=== PATIENT | female | born 2000 | race Caucasian/White ===

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

== ENCOUNTER 2024-03-07 18:55 | Inpatient (IN) | payer BC, SELFPAY ==
[2024-03-07 19:30] VITALS: BP 132/88; PULSE 104; O2SAT 98
[2024-03-07 19:31] VITALS: RESP 16; TEMP 36.7
[2024-03-07] MEDS: Lactated Ringers 1,000 ML 50 ML IV (19:45)
[2024-03-07 19:56] LABS: Absolute Lymphocyte Count 1.72 X10^3/uL (0.83-4.51); Absolute Neutrophil Count 8.3 X10^3/uL (2.0-7.7); Basophil# 0.03 X10^3/uL; Basophil% 0.3 % (0-1); Eosinophil# 0.11 X10^3/uL; Hematocrit 36.9 % (37-47); Hemoglobin 12.5 g/dL (12.0-15.0); Lymphocyte # 1.72 X10^3/ul (0.83-4.51); Lymphocyte % 15.7 % (19-41); Mean Corp Hgb Conc 33.9 g/dL (32-36); Mean Corpuscular Hgb 28.5 pg (27.0-32.0); Mean Corpuscular Volume 84.2 fL (81-99); Mean Platelet Vol. 10.5 fl (6.2-12.0); Monocyte# 0.72 X10^3/uL; Monocyte% 6.6 % (0-10); NRBC Flagged by Analyzer 0 % (0-5); Neutrophil # 8.33 X10^3/uL (2.7-7.7); Neutrophil % 75.9 % (47-70); Platelet Count 245 K/mm3 (150-450); RBC Distribution Width CV 13.1 % (11.6-14.6); RBC Distribution Width SD 40.3 fl (35.1-43.9); Red Blood Count 4.38 M/mm3 (4.2-5.4)
[2024-03-07] MEDS: miSOPROStol 25 MCG TABLET VAGINAL (20:00)
[2024-03-07] MEDS: 0.9% Normal Saline Single 100 ML IV.SOLN. INTRA-UTER (20:00)
--- NOTE | 2024-03-07 20:13 | PCM.HP.OB ---
HPI - General General Date of Admission: 03/07/24 HPI Narrative NING THORNTON, is a 23 F who presents @ 39 weeks who presents for IOL for Gest HTN PFSH [facility] Medical History (Updated 03/07/24 @ 20:[address] Xochitl Leal MD) Anxiety Gestational HTN Home Medications naproxen 500 mg tablet 500 mg PO BID PRN pain #20 tabs 11/12/18 [Rx Last Taken Unknown] omeprazole 20 mg tablet,delayed release 20 mg PO DAILY 03/07/24 [History Last Taken 03/06/24 21:00 20 mg] vit no.95-ferrous fumarate 28 mg-folic acid 800 mcg tablet () 1 tab PO DAILY 03/07/24 [History Last Taken 03/06/24 21:00 1 TAB] Allergy/AdvReac Type Severity Reaction Status Date / Time No Known Allergies Allergy Verified 03/07/24 20:10 Surgical History (Updated 03/07/24 @ 20:17 by Tayler Hicks) History of surgery Social History Smoking Status: Never smoker NST FHR Rate Baby A Baseline: 150 Variability:: Moderate Accelerations:: 15 x 15 Decelerations:: None NST Reactive:: Yes FHR Category:: Category I Uterine Activity:: occasional Vital Signs Vital Signs Vital Signs: 03/07/24 19:30 03/07/24 19:30 03/07/24 19:30 Temperature Temperature Source Pulse Rate 104 H Respiratory Rate Blood Pressure 132/88 H BP Systolic 132 BP Diastolic 88 Pulse Ox 98 03/07/24 19:31 03/07/24 19:31 03/07/24 19:31 Temperature 98.1 F Temperature Source Tympanic Pulse Rate Respiratory Rate 16 Blood Pressure BP Systolic BP Diastolic Pulse Ox Physical Exam Narrative VE: 160/-3, posterior cervix. Intracervical bazan placed. Const alert and oriented x3 General Appearance: cooperative HEENT normocephalic GI GI Narrative: Gravid, non tender to palpation. OB / External & Speculum: external exam normal Extremity normal to inspection Skin no rashes or lesions noted Neuro oriented x3 and CN's II-XII intact bilaterally Psych Appearance: grossly normal Labs Labs Labs: Blood Type Pending Antibody Screen Pending Hct 36.9 % (37-47) L Hgb 12.5 g/dL (12.0-15.0) Syphilis Total Ab Pending Assessment & Plan (1) 39 weeks gestation of : (2) Gestational HTN: (3) Anxiety: PLAN: Plan Admit to L&D Mont[place] FHR/TOCO Epidural if requested for pain Monitor VS Anticipate bazan/cytotec then will start pitocin
[2024-03-07 20:24] VITALS: BMI 29.3
[2024-03-07 20:43] LABS: Syphilis Antibodies Non-reactive
[2024-03-07] MEDS: LACTATED RINGERS 500 ML 999 ML IV (22:42)
[2024-03-08] VITALS (57 sets, daily range): BP systolic 106–145; BP diastolic 53–92; PULSE 66–144; RESP 15–18; TEMP 36.2–37.2; O2SAT 80–100
[2024-03-08] MEDS: miSOPROStol 25 MCG TABLET VAGINAL (00:05)
[2024-03-08] MEDS: LACTATED RINGERS 500 ML 999 ML IV ×3 (03:43→08:29)
[2024-03-08] MEDS: fentaNYL-bupivacaine (epidural) 100 ML BAG EPIDURAL ×2 (04:34→10:09)
[2024-03-08] MEDS: Lactated Ringers 1,000 ML 200 ML IV ×2 (06:07→12:05)
[2024-03-08] MEDS: Oxytocin 15 Units/NS 250ml 15 UNITS/250 ML IV.SOLN 2 UNITS IV (06:08)
--- NOTE | 2024-03-08 08:16 | PCM.PN.CNM ---
Subjective Subjective Patient seen at bedside. Comfortable with epidural. Objective Data Objective Data Vital Signs: Vital Signs Temp Pulse Resp BP Pulse Ox 97.8 F 80 15 116/67 97 03/08/24 07:41 03/08/24 07:40 03/08/24 07:41 03/08/24 07:40 03/08/24 07:41 Weight: 176 lb 9.444 oz Body Mass Index (BMI) 29.3 Intake & Output: Intake and Output for Last 24 Hours 03/06/24 03/07/24 03/08/24 23:59 23:59 23:59 Intake Total 537.5 / 537.5 1264.17 / 1264.17 Output Total 100 / 100 Balance 537.5 / 537.5 1164.17 / 1164.17 Lab / Micro Data 03/07/24 19:45 Labs: Laboratory Results - last 24 hr 03/07/24 19:45: WBC 11.0, RBC 4.38, Hgb 12.5, Hct 36.9 L, MCV 84.2, MCH 28.5, MCHC 33.9, RDW Std Deviation 40.3, RDW Coeff of Jessica 13.1, Plt Count 245, MPV 10.5, Immature Gran % (Auto) 0.500, Neut % (Auto) 75.9 H, Lymph % (Auto) 15.7 L, Ballard % (Auto) 6.6, Eos % (Auto) 1.0, Baso % (Auto) 0.3, Absolute Neuts (auto) 8.3 H, Absolute Lymphs (auto) 1.72, Nucleated RBC % 0, Syphilis Total Ab Non-reactive, Antibody Screen NEGATIVE ROS Eyes Eyes: Denies blurry vision, change in vision or spots in vision ENT HEENT: Denies dizziness or headache(s) Cardiovascular Cardiovascular: Denies abdominal pain, chest pain or dyspnea Respiratory/Chest Respiratory/Chest: Denies cough, dyspnea, shortness of breath at rest or shortness of breath with exertion Gastrointestinal Gastrointestinal: Denies abdominal pain, diarrhea or vomiting Genitourinary Genitourinary: Denies change in urinary stream, difficulty urinating or dysuria Musculoskeletal Musculoskeletal: Reports none Integumentary Integumentary: Denies rash Neurologic Neurologic: Denies dizziness, headache(s), memory loss or weakness Psychiatric Psychiatric: Reports none Physical Exam Const alert and no apparent distress General Appearance: cooperative Orientation / Consciousness: awake Exam Limitations: no limitations HEENT normocephalic Eyes General Eye: normal appearance of both eyes Neck full ROM Chest inspection of chest normal Resp normal respiratory effort and normal air movement Effort and Inspection: symmetric chest movement Auscultation: clear to auscultation bilaterally Cardio regular rate GI soft to palpation, non-tender and non-distended Inspection: and other Back/Spine normal ROM Extremity full ROM, normal capillary refill and no calf tenderness Skin no rashes or lesions noted Neuro oriented x3 and CN's II-XII intact bilaterally Psych mental status grossly normal Assessment & Plan (1) 39 weeks gestation of : (2) Gestational HTN: (3) Anxiety: (4) Meconium in amniotic fluid: PLAN: Plan CE /-2 AROM for large amount of meconium fluid Pitocin currently off due to tachysystole IUPC and FSE placed without difficulty Anticipate
[2024-03-08] MEDS: Terbutaline 1 MG/ML Vial 0.25 MG SC (09:06)
--- NOTE | 2024-03-08 09:11 | PCM.PN.CNM ---
Subjective Subjective Cat. 2 tracing with tachysystole at times. Dr. Addison updated and order received for dose of Terbutaline to be given STAT. Patient repositioned to hands and knees. Good FHT acceleration with scalp stimulation. Objective Data Objective Data Vital Signs: Vital Signs Temp Pulse Resp BP Pulse Ox 97.5 F L 117 H 17 107/57 L 99 03/08/24 08:50 03/08/24 09:10 03/08/24 08:50 03/08/24 08:50 03/08/24 09:10 Weight: 176 lb 9.444 oz Body Mass Index (BMI) 29.3 Intake & Output: Intake and Output for Last 24 Hours 03/06/24 03/07/24 03/08/24 23:59 23:59 23:59 Intake Total 537.5 / 537.5 1268.37 / 1268.37 Output Total 100 / 100 Balance 537.5 / 537.5 1168.37 / 1168.37 Lab / Micro Data 03/07/24 19:45 Labs: Laboratory Results - last 24 hr 03/07/24 19:45: WBC 11.0, RBC 4.38, Hgb 12.5, Hct 36.9 L, MCV 84.2, MCH 28.5, MCHC 33.9, RDW Std Deviation 40.3, RDW Coeff of Jessica 13.1, Plt Count 245, MPV 10.5, Immature Gran % (Auto) 0.500, Neut % (Auto) 75.9 H, Lymph % (Auto) 15.7 L, White % (Auto) 6.6, Eos % (Auto) 1.0, Baso % (Auto) 0.3, Absolute Neuts (auto) 8.3 H, Absolute Lymphs (auto) 1.72, Nucleated RBC % 0, Syphilis Total Ab Non-reactive, Antibody Screen NEGATIVE Assessment & Plan (1) Category II heart rate tracing during labor and delivery: PLAN: Plan FHT's recovered with position change Pitocin off Currently category 1 tracing Will continue to monitor closely
[2024-03-08] MEDS: Oxytocin 15 Units/NS 250ml 15 UNITS/250 ML IV.SOLN 83 UNITS IV (15:05)
--- NOTE | 2024-03-08 15:05 | OP.PCM_ITS ---
Assessment & Plan (1) (spontaneous vaginal delivery): (2) Laceration, obstetrical, second degree: (3) Gestational HTN: (4) Anxiety: (5) Care and examination of lactating mother: Maternal Data Information ROMAIN Calculator Estimated Delivery Date Method Current WG Current Estimate 03/11/24 Manual 39w 4d Vaginal Delivery Maternal Presentation Maternal Presentation: Medically Indicated Induction Maternal Presentation: at 39.4 weeks gestation that presented for induction of labor for GHTN. Type of Induction: Pitocin, Anguiano Bulb, Amniotomy and Cytotec Medical Reason for Induction: Gestational Hypertension Operative Information Date of Procedure: 03/08/24 Pre-Operative Diagnosis: Term gestation, Induction of labor, GHTN Post-Operative Diagnosis: , live male infant Surgery / Procedure Performed: Spontaneous Vaginal Delivery Type of Anesthesia: Epidural Drain: Anguiano to straight drain Estimated Blood Loss: 250 Time of Delivery: 14:33 Findings Description of Procedure: Patient feeling pressure and urge to push. With good maternal effort, head delivered followed by posterior shoulder, anterior shoulder and remainder of infant body. mouth and nares suctioned. Loose nuchal cord around neck easily reduced. Vigorous male placed on maternal abdomen and attended to by nursery staff and maintenance and repair worker. Pitocin IV started for active management of the third stage of labor. 3 vessel cord clamped and cut by FOB after delay and placed immediately skin to skin with patient. Cord blood collected and sent. Placenta delivered spontaneously and intact. Second degree laceration repaired in usual fashion using Vicryl 3-0 Rapid. Hemostasis obtained. Vaginal sweep and rectal exam completed by me. Fundus firm 2 below U. EBL 250 cc. APGARS 8/9. and patient bonding well at this time. Dr. Addison notified of delivery. Presentation: Vertex Amniotic Membrane Rupture Type: Artificial Time of Membrane Rupture: 0807 Amniotic Fluid Description: Thick meconium Placental Delivery Description: Spontaneous Placenta Disposition: [facility] Cord Vessel Description: 3 Vessels Cord Entanglement: Around neck x 1, loose Nuchal Cord Compression: Without compression Infant A Gender: Male (1 minute): 8 (5 minute): 9 Delayed Cord Clamping: Yes Post Vaginal Delivery Medications Given After Delivery: IV Pitocin Episiotomy Description: None Laceration: 2nd degree Complication Complications: None
[2024-03-08] MEDS: Naproxen 500 MG Tablet PO (17:44)
[2024-03-09] MEDS: Acetaminophen 500 MG Tablet 1000 MG PO (00:15)
[2024-03-09 04:09] VITALS: BP 115/71; PULSE 74; RESP 16; TEMP 36.3; O2SAT 98
--- NOTE | 2024-03-09 06:38 | DS.PCM_ITS ---
Providers Date of Admission: 03/07/24 Primary Care Physician: Dr. Jonathan Schofield MD Reason For Visit: VAGINAL DELIVERY Diagnosis Discharge Diagnosis (1) (spontaneous vaginal delivery): Status: Acute Code(s): O80 - Encounter for full-term uncomplicated delivery (2) Laceration, obstetrical, second degree: Status: Acute Code(s): O70.1 - Second degree perineal laceration during delivery (3) Care and examination of lactating mother: Status: Acute Code(s): Z39.1 - Encounter for care and examination of lactating mother Medications at Discharge Home Medications naproxen 500 mg tablet 500 mg PO BID PRN pain #20 tabs 11/12/18 omeprazole 20 mg tablet,delayed release 20 mg PO DAILY 03/07/24 vit no.95-ferrous fumarate 28 mg-folic acid 800 mcg tablet () 1 tab PO DAILY 03/07/24 sennosides 8.6 mg-docusate sodium 50 mg tablet (Stool Softener-Stimulant Laxative) 1 - 2 tab PO DAILY PRN PRN Constipation #0 tabs 03/09/24 Hospital Course Operations None Procedures None Summary of Care Provided Minutes Spent on Discharge: 15 Hospital Course: Patient had . Hospital course was uneventful. Physical Exam Const alert and no apparent distress General Appearance: cooperative and comfortable Exam Limitations: no limitations HEENT normocephalic Eyes General Eye: normal appearance of both eyes Neck full ROM General: normal visual inspection Chest Chest: symmetrical chest wall rise Resp normal respiratory effort and normal air movement Effort and Inspection: symmetric chest movement Auscultation: clear to auscultation bilaterally Cardio regular rate and regular rhythm GI normal to inspection, nondistended, normoactive bowel sounds Back/Spine normal ROM Extremity full ROM and no calf tenderness General Extremity: normal exam except as noted Skin no rashes or lesions noted Neuro CN's II-XII intact bilaterally Psych mental status grossly normal Weight / BMI Weight Weight: 176 lb 9.444 oz Body Mass Index (BMI) 29.3 ABG / Lab / Microbiology Data 03/07/24 19:45 D/C Instructions Discharge Diet: No restrictions May resume sexual activity in: 6-8 weeks Weight Bearing Status: Weight bearing as tolerated Call your doctor if you observe: Fever of 101 or Higher, Inability to urinate, Using more than 1 pad per hour, Shortness of breath, Chest pain, Calf discomfort and Uncontrolled pain Please Follow Up With: Ermelinda Almonte CNM When: 2 weeks virtual visit/ 6 weeks in office Meaningful Use Info Meaningful Use Diagnoses (Choose all that apply): None applicable Discharge Plan Admission Admit Date/Time: 03/07/24 18:55 Primary Reason for Your Visit: Labor and Delivery Attending Provider: Ermelinda Almonte Primary Care Provider: Jonathan Schofield Discharge Orders/Prescriptions Prescriptions: New sennosides-docusate sodium [Stool Softener-Stimulant Laxat] 8.6-50 mg Tablet 1 - 2 tab PO DAILY PRN PRN (Reason: Constipation) Qty: 0 0RF Continued naproxen 500 MG tablet 500 mg PO BID PRN Qty: 20 0RF Hold Instructions: PNV cmb#95-ferrous fumarate-FA [] 28 mg iron- 800 mcg tablet 1 tab PO DAILY No Action omeprazole 20 mg tablet,delayed release (DR/EC) 20 mg PO DAILY Referrals / Follow Up: Ermelinda Almonte CNM [Med Staff - [facility]] - Jonathan Schofield MD [Primary Care Provider] - Disposition Disposition (needs filled in before D/C Order can be placed): Home, Self Care
[2024-03-09 08:52] VITALS: BP 124/82; PULSE 81; RESP 16; TEMP 36.2; O2SAT 97
[2024-03-09 12:16] VITALS: BP 127/76; PULSE 98; RESP 16; TEMP 36.3; O2SAT 98
[2024-03-09 16:08] VITALS: BP 117/75; PULSE 100; RESP 16; TEMP 36.3; O2SAT 99
--- NOTE | 2024-03-10 09:28 | CASEMGMT ---
Social Work Assessment Labor and Delivery Unit Patient Address: [address] [place] [id number] Phone number: [phone] Date of Referral: 03/09/24 Time of Referral:? 1434 Referred By: Xochitl Leal Date of Intervention: ??03/09/24 Time of Intervention:? 1210 Reason for Referral:?History of anxiety Sw completed chart review and acknowledges social work consult due to maternal mental health history positive for anxiety. Sw presented to bedside and introduced self to mother of baby (IJEOMA- Trisha) and father of baby (ELZBIETA- Willam). Sw notes that parents have visitor present, and asked if it was okay to continue with assessment, and parents stated yes. Sw explained sw role during hospitalization and completed psychosocial assessment. History obtained from: medical records, MOB and ELZBIETA Household composition: Currently residing in the family home is ELZBIETA RAPHAEL, their family cat and baby when ready for discharge. Parents deny any issues or concerns with their current housing. Patient's parent/guardian status:? ?IJEOMA states that she and ELZBIETA have been together for 4 years, they met at youth group at their [employer]. No concerns of domestic violence or intimate partner violence reported. Medical History: IJEOMA is 23 year old female who is 2, para 0- now 1 following labor and delivery of . IJEOMA received routine care during with [facility]. IJEOMA presented to hospital for induction of labor and delivered baby via vaginal delivery on 03/08/24 at 39 weeks gestation. Baby boy, named Lindsey, was born weighing 6lb 10oz with apgars of 8 and 9 at one and five minutes of life, respectfully. IJEOMA is breast feeding and states that it is going well. Baby will be followed by Dr. Damon for pediatrics. Educational Status:? MOB completed high school, ELZBIETA obtained an associates degree. No concerns reported regarding reading, learning or comprehension. Financial Status: ELZBIETA is gainfully employed outside of the home. He works in IT for his father in [employer] and is able to take some time off of work now that baby has been born. MOB states that she is a stay at home mom now that baby has been born. Infant Supplies:??Parents have obtained all necessary baby supplies, including: car seat, safe sleep space, clothes, diapers and wipes. MOB states that she also has a breast pump for home. Childcare/Caregiver(s):? MOB will be the primary caregiver to baby along with FOB when he is not at work. Transportation:?? Both parents have their drivers license and reliable means of transportation. Programs/Agencies Involved: ???Parents deny linkage to community resources that help them financially. Children Services/Legal Issues:??? No history of involvement, no issues or concerns warranting referral to be made at this time. Behavioral Health Issues: ??Mental Health History: FOB denies mental health diagnoses. MOB states that she has a history of anxiety, is not prescribed medications. MOB states that it is mostly situational anxiety. MOB reports that when she starts to feel anxious she utilizes healthy and appropriate coping skills. MOB denies feeling anxious throughout , and states that she has been feeling really good since delivery. ??? Substance Use History:??Parents deny substance use prior to and during . Family History:?Parents deny family history of addiction/ substance use and significant mental health diagnoses such as bipolar or schizophrenia. ? Drug Screens: No drug screens observed during chart review. ?? Family/Social Stressors:? Parents deny any issues, concerns or stressors at this time. They were observed to be in good spirits and are excited to take baby home. Support Systems: MOB states that both sets of grandparents are extremely supportive. Depression/Shaken Baby/Safe Sleeping:? Sw educated parents on signs and symptoms of baby blues and anxiety and depression to be on the lookout for. Sw provided parents with literature for their review, that provides information regarding what to be on the lookout for regarding mental health. Parents express understanding. Sw educated parents on shaken baby prevention and ABCs of safe sleep. ASSESSMENT:? MOB and baby admitted following labor and delivery of . FOB states that he would be able to recognize a change in MOB's mental health should she experience any depression/ anxiety, and he would know how to help and support her. Parents made and maintained eye contact throughout completion of psychosocial assessment. Parents observed to be in happy and upbeat moods. Parents were receptive to sw involvement and support, engaging in conversation throughout. Parents have obtained everything they need for baby and have natural supports in place. Parents also provided paperwork on Help Me Grow, list of psychiatric hospital resources, and shaken baby prevention and ABCs of safe sleep. PLAN:? MOB and baby to be discharged when medically ready. ?No other services requested or indicated. Apollo Stratton, HOSE BUILDER, TRANSITION NURSE
== END 2024-03-09 17:40 | disposition home or self-care (01) | DRG 807 ==
PROVIDERS: Admitting Provider Obstetrics & Gynecology; PCP Family Medicine; Referring Provider Obstetrics & Gynecology; Visit Provider Advanced Practice Midwife
DX: O13.4 Gestational [pregnancy-induced] hypertension without significant proteinuria, complicating childbirth (principal); Z37.0 Single live birth; O99.344 Other mental disorders complicating childbirth; F41.9 Anxiety disorder, unspecified; O70.1 Second degree perineal laceration during delivery; Z3A.39 39 weeks gestation of pregnancy; O77.0 Labor and delivery complicated by meconium in amniotic fluid; O69.81X0 Labor and delivery complicated by cord around neck, without compression, not applicable or unspecified; O76 Abnormality in fetal heart rate and rhythm complicating labor and delivery
CPT/HCPCS: 59050; 85025; 86780; 86850; 86900; 86901; 99221; J7120; G0378; J3490

== ENCOUNTER 2025-04-21 17:56 | Emergency (ER) | payer BC, OTHER, SELFPAY ==
[2025-04-21 17:57] VITALS: BP 133/88; PULSE 95; RESP 17; TEMP 36.6; O2SAT 100; BMI 28.4
--- NOTE | 2025-04-21 18:29 | EDS_ITS ---
HPI HPI - Female History of Present Illness Chief Complaint: Vag Bld, Preg Informant: patient Associated Symptoms P: 1 Ab: 1 Narrative Narrative: Patient is a 24-year-old female G3, P1 who is 12 weeks gestation by dates had ultrasound approximate 7 weeks that showed single intrauterine gestation. She follows with [facility]. She woke up today with vaginal spotting and as the days progressed she started have increased bleeding and cramping. She initially went to [facility] emergency room where they did a quant and her number was [phone]. They did not have ultrasound. Over the last hour and a half the bleeding became worse and she started extreme pain which is what prompted her to come to the emergency room. She states up until today she has been feeling fine with no issues. No other complaints or concerns reported at this time. [facility] Medical History Care and examination of lactating mother Laceration, obstetrical, second degree (spontaneous vaginal delivery) Category II heart rate tracing during labor and delivery Meconium in amniotic fluid 39 weeks gestation of Anxiety Gestational HTN Home Medications ?Medication ?Instructions ?Recorded ?Last Taken ?Type vit no.95-ferrous 1 tab PO DAILY 03/06/24 21:00 History fumarate 28 mg-folic acid 800 mcg 1 TA B tablet () Allergy/AdvReac Type Severity Reaction Status Date / Time No Known Allergies Allergy Verified 04/21/25 18:00 Surgical History History of surgery Social History Smoking Status: Never smoker ROS ROS ED Constitutional Constitutional ED: Denies chills or fever(s) Respiratory/Chest Respiratory/Chest: Denies cough Gastrointestinal Gastrointestinal: Reports abdominal pain; Denies nausea or vomiting Genitourinary Genitourinary ED: Reports other Details: vaginal bleeding, 12 weeks by dates ; Denies dysuria or hematuria Integumentary Denies rash Psychiatric Psychiatric: Reports anxiety Hematologic/Lymphatic Hematologic/Lymphatic: Denies easy bleeding or easy bruising EXAM Physical Exam Const Vital Signs: 04/21/25 17:57 04/21/25 20:06 Temperature 98 F Temperature Source Oral Pulse Rate 95 80 Respiratory Rate 17 18 Blood Pressure 133/88 H 130/67 H Blood Pressure Mean 103 88 Pulse Ox 100 100 Oxygen Delivery Method Room Air Positive well nourished and well developed General Appearance ED: well developed and NAD; Negative for pallor HEENT Reports moist mucous membranes Neck supple Chest Wall inspection of chest normal and palpation of chest normal Resp normal respiratory effort and clear to auscultation bilaterally Cardio regular rate and regular rhythm GI normal to inspection, nondistended, normoactive bowel sounds, soft to palpation and non-tender Narrative: Chaperoned pelvic exam performed. Normal external genitalia. Patient has blood pooling slightly in the vaginal canal. This is suctioned out. Os appears open and there is appears to be products of conception/tissue starting come through the cervix. Will let this pass/continue to monitor at this time. Neuro oriented x3 Sensorium / Orientation: alert Psych Mood & Affect: anxious and tearful Skin no rashes or lesions noted General Skin Exam: Negative for pallor MDM MDM MDM Narrative Medical decision making narrative: Patient evaluated for increased pelvic cramping, vaginal bleeding in the setting of for trimester . By dates she is approximately 12 weeks. Bedside ultrasound performed by myself shows a gestational sac with no heartbeat or pole. There is what appears to be tissue/blood in the uterus. While doing the exam patient feels a pop and then feels that she is bleeding more heavily. Pelvic exam consistent with an active miscarriage. I did speak with [facility] engine emission technician on-call, Ermelinda Almonte. She will check the patient's Rh status. Will continue to monitor at this time. Spoke with engine emission technician who confirms that patient is O+ blood type. She had a [id number] ultrasound in the office on 03/20/2025 which showed single intrauterine gestational sac with cardiac activity. Due date was November 03. On repeat pelvic exam patient passes what appears to be complete products of conception with gestational sac intact. Bleeding has slowed. She is monitored for another hour and does not have any significant hemorrhage/bleeding. Patient will follow-up with [facility]. Discharge Plan Triage Chief Complaint: Vag Bld, Preg ED Provider: Beatriz Ruff Dx/Rx/DC Orders Clinical Impression: Complete miscarriage Instructions: ED Miscarriage Spontaneous Prescriptions: No Action PNV cmb#95-ferrous fumarate-FA [] 28 mg iron- 800 mcg tablet 1 tab PO DAILY Primary Care Provider: Jonathan Schofield Referrals: Ermelinda Almonte CNM [Med Staff - [facility]] - Jonathan Schofield MD [Primary Care Provider] - Activity Restrictions/Additional Instructions: Appears that you completed miscarriage today. Please follow-up with your [facility] next week. If you have heavy bleeding, severe pain or if like you in a pass out do not hesitate to return to the emergency room. You may alternate ibuprofen and Tylenol as needed for cramping and pain. Print Language: Italian Disposition Disposition: Home, Self Care
[2025-04-21] MEDS: Ibuprofen 600 MG Tablet PO (18:41)
[2025-04-21] MEDS: Ondansetron ODT 4 MG Tablet PO (18:41)
--- NOTE | 2025-04-21 18:55 | CM.ED ---
Social Work Date of referral: 04/21/2025 Reason for referral: Miscarriage Referred by: ED nurse Patient provided consent to social work visit. Patient's at patient's bedside and both were weeping. industrial workers provided emotional support and offered condolences. Patient and her expressed appreciation. Patient and her stated they have a large and strong support system at this time and declined written resources for loss/grief/support groups and/or counseling services. No other needs/concerns at this time. Nitza Rubin, CREATIVE WRITING ENGLISH PROFESSOR, VIDEO GAME ENGINEER
[2025-04-21 20:06] VITALS: BP 130/67; PULSE 80; RESP 18; O2SAT 100
[2025-04-21 20:31] VITALS: BP 130/67; PULSE 80; RESP 18; TEMP 36.8; O2SAT 100
== END 2025-04-21 20:31 | disposition home or self-care (01) ==
LOC: ED 20:31
PROVIDERS: Emergency Provider Emergency Medicine; PCP Family Medicine; Visit Provider Emergency Medicine
DX: O03.9 Complete or unspecified spontaneous abortion without complication (principal)
CPT/HCPCS: 99282

== ENCOUNTER 2025-04-25 16:25 | Emergency (ER) | payer BC, OTHER, SELFPAY ==
[2025-04-25 16:26] VITALS: BP 120/59; PULSE 91; RESP 22; TEMP 36.1; O2SAT 100; BMI 28.1
[2025-04-25] MEDS: LORazepam 0.5 MG Tablet PO ×2 (17:35→19:26)
[2025-04-25] MEDS: Naproxen 250 MG Tablet PO (17:50)
[2025-04-25] MEDS: Ondansetron ODT 4 MG Tablet PO (17:51)
[2025-04-25 19:00] VITALS: BP 123/65; PULSE 78; RESP 16; O2SAT 100
--- NOTE | 2025-04-25 20:02 | EX.ED.DYSGE1 ---
HPI History of Present Illness Chief Complaint: Anxiety Detail of Chief Complaint: Shortness of breath, chest discomfort, abdominal pain, tingling Informant: patient and spouse/S.O. Onset/Context/Timing Onset: Days Context: Sudden Onset Timing: Continuous and Waxes and wanes Quality: Symptoms of anxiety Location: Generalized Current Severity: Moderate Maximum Severity: Severe Worsened by: Patient was seen on April 21 and diagnosed with a complete AB. Was her third Relieved by: Nothing Associated Symptoms Associated Symptoms: Constellation of symptoms Narrative Narrative: Patient is a 24-year-old G3, P1 Ab2 female who had a miscarriage April 21. She was seen by Dr. Ruff. She has been having intermittent shortness of breath, chest pain, upper abdominal pain, numbness perioral and hands. Patient has no history of hypertension, diabetes, cardiac disease. Prior similar symptoms: No Recent Illness/Hospital[facility]: [facility] Medical History Care and examination of lactating mother Laceration, obstetrical, second degree (spontaneous vaginal delivery) Category II heart rate tracing during labor and delivery Meconium in amniotic fluid 39 weeks gestation of Anxiety Gestational HTN Home Medications ?Medication ?Instructions ?Recorded ?Last Taken ?Type vit no.95-ferrous 1 tab PO DAILY 03/07/24 03/06/24 21:00 History fumarate 28 mg-folic acid 800 mcg 1 TAB tablet () lorazepam 0.5 mg tablet (Ativan) 0.5 mg PO TID PRN anxiety 3 days 04/25/25 Unknown Rx #10 tabs Allergy/AdvReac Type Severity Reaction Status Date / Time No Known Allergies Allergy Verified 04/25/25 16:26 Surgical History History of surgery Social History Smoking Status: Never smoker ROS ROS ED Constitutional Constitutional ED: Denies chills, fever(s) or subjective Eyes Eyes: Denies blurry vision or change in vision ENT ENT ED: Denies ear pain, rhinorrhea or sore throat Cardiovascular Cardiovascular: Reports chest pain and palpitations; Denies orthopnea or paroxysmal nocturnal dyspnea Respiratory/Chest Respiratory/Chest: Reports dyspnea; Denies cough, dyspnea on exertion, orthopnea or paroxysmal nocturnal dyspnea Gastrointestinal Gastrointestinal: Reports abdominal pain and nausea; Denies diarrhea or vomiting Musculoskeletal Musculoskeletal: Denies arthralgias, back pain or myalgias Integumentary Denies rash Neurologic Neurologic: Reports paresthesias Psychiatric Psychiatric: Reports anxiety and depression; Denies suicidal ideation or suicidal thoughts EXAM Physical Exam Const Vital Signs: 04/25/25 16:26 04/25/25 19:00 Temperature 97 F L Temperature Source Temporal Pulse Rate 91 78 Respiratory Rate 22 H 16 Blood Pressure 120/59 L 123/65 H Blood Pressure Mean 79 84 Pulse Ox 100 100 Oxygen Delivery Method Room Air Room Air Positive well nourished and well developed Constitutional Narrative: Patient is tearful. She appears anxious. Blood pressure slightly elevated. She is slightly tachypneic. General Appearance ED: well developed; Negative for cyanotic, diaphoretic or pallor HEENT Reports moist mucous membranes HEENT Narrative: Head is atraumatic, cephalic. Ears normal. Nares patent. Patient has bilateral Chvostek sign. Eyes PERRL and EOMs intact bilaterally General Eye ED: Negative for pale conjunctiva or scleral icterus Neck no lymphadenopathy and supple Resp normal respiratory effort and clear to auscultation bilaterally Cardio regular rate, regular rhythm, S1 normal heart sound, S2 normal heart sound and no murmurs GI normal to inspection, nondistended, normoactive bowel sounds, non-tender, non-distended and no masses; Negative for hepatosplenomegaly Extremity normal to inspection Neuro oriented x3 and CN's II-XII intact bilaterally Sensorium / Orientation: alert Psych Mood & Affect: anxious and tearful Skin General Skin Exam: Negative for jaundice or pallor MDM MDM MDM Narrative Medical decision making narrative: Patient's history and physical is consistent with hyperventilation syndrome due to anxiety reaction due to demise with complete AB. Patient received Ativan. She had improvement. Plan is to discharge to home. Second dose of Ativan was ordered because she vomited after she received the first dose. She was reassessed. She feels markedly better. Will discharge with short course of Ativan and follow-up with her doctor. History & Record Review Additional record(s) reviewed:: Prior ED visit and Prior labs Discharge Plan Triage Chief Complaint: Anxiety ED Provider: Checo Garcia Dx/Rx/DC Orders Clinical Impression: Anxiety in acute stress reaction, Acute hyperventilation syndrome, Situational depression Instructions: ED Anxiety Reaction Prescriptions: New lorazepam [Ativan] 0.5 mg tablet 0.5 mg PO TID PRN (Reason: anxiety) 3 Days Qty: 10 0RF No Action PNV cmb#95-ferrous fumarate-FA [] 28 mg iron- 800 mcg tablet 1 tab PO DAILY Primary Care Provider: Care Physician,No Primary Referrals: Care Physician,No Primary [Primary Care Provider] - Print Language: Peruvian Disposition Disposition: Home, Self Care
[2025-04-25 20:16] VITALS: BP 134/80; PULSE 79; RESP 16; TEMP 36.6; O2SAT 100
== END 2025-04-25 20:21 | disposition home or self-care (01) ==
PROVIDERS: Emergency Provider Emergency Medicine; Visit Provider Emergency Medicine
DX: F41.9 Anxiety disorder, unspecified (principal); R06.4 Hyperventilation; R07.89 Other chest pain; F43.0 Acute stress reaction; F32.A Depression, unspecified; R10.9 Unspecified abdominal pain; R11.0 Nausea; R06.00 Dyspnea, unspecified
CPT/HCPCS: 99283